=== PATIENT | female | born 1975 | race Caucasian/White ===

== ENCOUNTER 2025-01-01 06:29 | Day surgery (SDC) | payer OTHER, SELFPAY | END 2025-01-01 13:21 | disposition home or self-care (01) | LOC: GI 06:29 | PROVIDERS: ATTENDING PHYSICIAN Internal Medicine Gastroenterology | DX: R12 Heartburn (principal); K44.9 Diaphragmatic hernia without obstruction or gangrene; K31.7 Polyp of stomach and duodenum; R19.7 Diarrhea, unspecified | CPT/HCPCS: 43239; 88305; 88342 ==